=== PATIENT | female | born 1970 | race Hispanic/Latino ===

== ENCOUNTER → 2023-09-11 16:55 | Outpatient (REF) | payer OTHER, SELFPAY | LOC: HWWDC 16:55 | PROVIDERS: ATTENDING PHYSICIAN Nurse Practitioner Adult Health | DX: Z12.31 Encounter for screening mammogram for malignant neoplasm of breast (principal) | CPT/HCPCS: 77063; 77067 ==

== ENCOUNTER → 2023-10-04 08:54 | Outpatient (REF) | payer OTHER, SELFPAY | LOC: WDC 08:54 | PROVIDERS: ATTENDING PHYSICIAN Nurse Practitioner Adult Health | DX: R92.8 Other abnormal and inconclusive findings on diagnostic imaging of breast (principal) | CPT/HCPCS: 76642 ==

== ENCOUNTER 2023-10-18 00:40 | Emergency (ER) | payer SELFPAY ==
[2023-10-18 00:45] VITALS: BP 157/97
[2023-10-18 01:14] LABS: % Basophils 1.1 % (0-2); % Eosinophils 3.7 % (0-6); % Immature Granulocytes 0.1 % (0-0.5); % Lymphocytes 38.7 % (20.5-51.1); % Monocytes 8.8 % (1.7-9.3); % Neutrophils 47.6 % (42.2-75.2); Absolute Basophils 0.1 10^3/uL (0-0.2); Absolute Eosinophils 0.3 10^3/uL (0-0.7); Absolute Lymphocytes 2.9 10^3/uL (1.2-3.4); Absolute Monocytes 0.7 10^3/uL (0.1-0.6); Absolute Neutrophils 3.5 10^3/uL (1.4-6.5); Hemoglobin 13.5 g/dL (12.0-16.0); Mean Corp Hgb Conc. 34.6 g/dL (33.0-37.0); Mean Corpuscular Hgb 30.4 pg (27.0-31.0); Mean Corpuscular Volume 87.8 fL (81.0-99.0); Mean Platelet Volume 9.9 fL (7.4-10.4); Nucleated Red Blood Cells % 0 %; Platelet Count 254 10^3/uL (130-400); Red Blood Cell Count 4.44 10^6/uL (4.20-5.40); Red Cell Dist. Width 12.9 % (11.5-14.5); White Blood Cell Count 7.4 10^3/uL (4.8-10.8)
[2023-10-18 01:29] VITALS: BP 135/78
[2023-10-18 01:37] LABS: ALT (SGPT) 31 U/L (0-35); AST (SGOT) 32 U/L (14-36); Albumin 4.9 g/dl (3.5-5.0); Alkaline Phosphatase 64 U/L (38-126); Blood Urea Nitrogen 18 mg/dl (7-17); Calcium 9.4 mg/dl (8.4-10.2); Carbon Dioxide 23 mmol/L (22-30); Chloride 104 mmol/L (98-107); Glucose 97 mg/dl (70-99); Sodium 139 mmol/L (135-145); Total Bilirubin 0.5 mg/dl (0.2-1.3); eGFR > 60.00
[2023-10-18 01:45] LABS: Troponin I < 0.012 ng/ml
[2023-10-18 01:52] LABS: D-Dimer 0.47 ug/mlFEU (0.00-0.50)
--- NOTE | 2023-10-18 01:53 | ED.GENMED ---
History of Present Illness
<Devyn Harrison MD - Last Filed: 10/18/23 02:17>
General
Chief Complaint: Chest Pain
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
Exam Limitations: none
Time Seen by Provider: 10/18/23 01:14
Travel History
Have you had any contact with someone who has COVID-19?: No
Do you have any symptoms of coronavirus? Fever > 100 degrees, chills, cough, shortness of breath, sore throat, loss of taste or smell, muscle aches, or headache?: No
History of Present Illness
History of Present Illness:
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 Continuous for 3 hours. 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 Had 1 previous episode like this in the past however self resolved and was not worked up. No
pleuritic pain no radiation to the back arm or jaw. No nausea or diaphoresis. No exertional component. States she has some discomfort now but minimal.
Past History
<Devyn Harrison MD - Last Filed: 10/18/23 02:17>
Past History
ED Past Medical History: Hypercholesterolemia and Hypothyroidism
ED Past Surgical History: and Other (Breast abscess)
Social History
Tobacco: Non-smoker
Alcohol: None
Personal:
Living: with family
Review of Systems
<Devyn Harrison MD - Last Filed: 10/18/23 02:17>
Review of Systems
All Other Systems: Not applicable
Constitutional: Denies fever
Respiratory: Denies trouble breathing
Cardiac: Denies diaphoresis, palpitations or syncope
Phy Exam
<Devyn Harrison MD - Last Filed: 10/18/23 02:17>
Physical Exam
Physical Exam:
GENERAL: Alert and oriented in no apparent distress
EYE: Orbits normal.
NECK: Supple, no significant adenopathy.
ENT: Pharynx without erythema
CARDIAC: Regular rate and rhythm without any obvious murmurs.
LUNGS: Clear breath sounds,normal
ABDOMEN: Soft, without focal tenderness or distention
NEUROLOGICAL: Alert and oriented , grossly non-focal
SKIN: Warm and dry, no rash or lesion, no discoloration, skin intact.
MUSCULOSKELETAL: No edema,no deformity.Good color
PSYCH: Normal and appropriate interaction.
<Jack Bartholomew DO - Last Filed: 10/18/23 05:32>
Heart Score for Chest Pain Patients
STEMI patient?: Not applicable
Course
<Devyn Harrison MD - Last Filed: 10/18/23 02:17>
Orders/Labs/Results
Orders:
Orders
10/18/23 00:45
Electrocardiogram (*1) Urgent
Reason for Study: Chest Pain
EKG- Treatment ONCE
10/18/23 01:03
CMP [Comprehensive Metabolic Panel] Urgent
Complete Blood Count/With Diff Urgent
Troponin I Urgent
10/18/23 01:22
IV Insert/Care/Rem.- Treatment PRN
CR Chest - 2 Views Urgent
Comment:
Reason For Exam: cp
Pulse Ox/cont/shift [RESP] Stat
Quantity: 1
10/18/23 01:26
D-Dimer Urgent
10/18/23 02:16
EKG- Treatment ONCE
10/18/23 03:46
Troponin I Urgent
10/18/23 04:00
Electrocardiogram (*1) Stat
Reason for Study: Other
Other Reason for Exam: chest pain
Abnormal Lab Results
10/18/23
01:03
Absolute Monos (auto) 0.7 H 10^3/uL
(0.1-0.6)
BUN 18 H mg/dl
(7-17)
Creatinine 0.4 L mg/dL
(0.6-1.0)
10/18/23 01:03
10/18/23 01:03
Vital Signs
Initial and Last Documented VS:
Initial Vital Signs
Temp Pulse Resp BP Pulse Ox
97.6 F 56 20 157/97 97
10/18/23 00:45 10/18/23 00:45 10/18/23 00:45 10/18/23 00:45 10/18/23 00:45
Last Documented Vital Signs
Temp Pulse Resp BP Pulse Ox
97.6 F 62 14 102/58 96
10/18/23 00:45 10/18/23 05:00 10/18/23 05:00 10/18/23 05:00 10/18/23 05:00
<Jack Bartholomew, DO - Last Filed: 10/18/23 05:32>
Orders/Labs/Results
Orders:
Orders
10/18/23 00:45
Electrocardiogram (*1) Urgent
Reason for Study: Chest Pain
EKG- Treatment ONCE
10/18/23 01:03
CMP [Comprehensive Metabolic Panel] Urgent
Complete Blood Count/With Diff Urgent
Troponin I Urgent
10/18/23 01:22
IV Insert/Care/Rem.- Treatment PRN
CR Chest - 2 Views Urgent
Comment:
Reason For Exam: cp
Pulse Ox/cont/shift [RESP] Stat
Quantity: 1
10/18/23 01:26
D-Dimer Urgent
10/18/23 02:16
EKG- Treatment ONCE
10/18/23 03:46
Troponin I Urgent
10/18/23 04:00
Electrocardiogram (*1) Stat
Reason for Study: Other
Other Reason for Exam: chest pain
Abnormal Lab Results
10/18/23
01:03
Absolute Monos (auto) 0.7 H 10^3/uL
(0.1-0.6)
BUN 18 H mg/dl
(7-17)
Creatinine 0.4 L mg/dL
(0.6-1.0)
10/18/23 01:03
10/18/23 01:03
Vital Signs
Initial and Last Documented VS:
Initial Vital Signs
Temp Pulse Resp BP Pulse Ox
97.6 F 56 20 157/97 97
10/18/23 00:45 10/18/23 00:45 10/18/23 00:45 10/18/23 00:45 10/18/23 00:45
Last Documented Vital Signs
Temp Pulse Resp BP Pulse Ox
97.6 F 62 14 102/58 96
10/18/23 00:45 10/18/23 05:00 10/18/23 05:00 10/18/23 05:00 10/18/23 05:00
<Devyn Harrison MD - Last Filed: 10/18/23 02:17>
MDM/Problems Addressed
Differential Diagnosis Includes:
Nonexertional vague symptoms for 3 hours with a normal EKG and normal troponin. Repeat EKG and troponin will be done at the 3-hour jorge. Patient clinically is nontoxic and in no distress. If all stable patient can be followed up by cardiology
<Devyn Harrison MD - Last Filed: 10/18/23 02:17>
*Pulse Oximetry
Patient hypoxic: no
*EKG
Interpreted by ED Provider?: Yes
Interpretation: normal
Comparison EKG: no changes
Heart Rate: 60
Rate: normal
Rhythm: sinus
Ong: normal axis
Interval: normal interval
QRS Pattern: normal QRS
Ischemia: no ischemia
Data Reviewed
Review of Other/Old Records Reveals: Labs and Testing
<Jack Bartholomew DO - Last Filed: 10/18/23 05:32>
*Critical Care Note
Total Time (30-74mins, 75-104mins- exclusive of procedures): Not Applicable
ED Attending Note
<Devyn Harrison MD - Last Filed: 10/18/23 02:17>
-
Portions of this chart may have been created with voice recognition software.� Occasional wrong word or��sound alike� substitutions may have occurred due to the inherent limitations of voice recognition software.
Discharge Plan
Departure
Patient Disposition: Home (Routine Discharge)
Patient with high blood pressure during this ER visit?: No
Discharge Problem:
Chest pain
Instructions: Chest Pain DCA Follow Up, BLOOD PRESSURE
Interventions
Interventions:
*Risk Screen - Suicide Last Done: 10/18/23 00:45
*General Assessment Last Done: 10/18/23 01:27
*Neglect/Abuse Screening Last Done: 10/18/23 00:45
ED- Fall Risk Assessment Last Done: 10/18/23 05:10
*ED COVID-19 Vaccine History Last Done: 10/18/23 05:10
*Nursing Disposition Last Done: 10/18/23 05:10
ED- Cardiac Assessment Last Done: 10/18/23 01:28
Discharge Date and Time
Discharge Date/Time: 10/18/23 05:17
[2023-10-18 03:05] VITALS: BP 131/81
[2023-10-18 04:00] VITALS: BP 126/84
[2023-10-18 04:45] LABS: Troponin I < 0.012 ng/ml
[2023-10-18 05:00] VITALS: BP 102/58
== END 2023-10-18 05:17 | disposition home or self-care (01) ==
LOC: EMR 00:40
PROVIDERS: Student in an Organized Health Care Education/Training Program; EMERGENCY PHYSICIAN Emergency Medicine
DX: R07.9 Chest pain, unspecified (principal)
CPT/HCPCS: 99285; 71046; 80053; 84484; 85025; 85379; 93005

== ENCOUNTER 2023-11-06 09:51 | Outpatient (RCR) | payer OTHER, SELFPAY | END 2023-11-06 23:59 | disposition home or self-care (01) | LOC: RPT 09:51 | PROVIDERS: ATTENDING PHYSICIAN Nurse Practitioner Acute Care | DX: M76.62 Achilles tendinitis, left leg (principal); M72.2 Plantar fascial fibromatosis; Z73.6 Limitation of activities due to disability | CPT/HCPCS: 97010; 97110; 97162 ==

== ENCOUNTER → 2023-11-20 11:20 | Outpatient (REF) | payer OTHER, SELFPAY ==
[2023-11-20 12:33] LABS: ALT (SGPT) 21 U/L (0-35); AST (SGOT) 22 U/L (14-36); Albumin 4.7 g/dl (3.5-5.0); Alkaline Phosphatase 81 U/L (38-126); Blood Urea Nitrogen 24 mg/dl (7-17); Calcium 9.6 mg/dl (8.4-10.2); Carbon Dioxide 25 mmol/L (22-30); Chloride 104 mmol/L (98-107); Glucose 91 mg/dl (70-99); HDL Cholesterol 46 mg/dl; LDL Cholesterol, Calculated 113 mg/dl; Potassium 4.7 mmol/L (3.5-5.1); Sodium 137 mmol/L (135-145); Total Bilirubin 0.6 mg/dl (0.2-1.3); Total Cholesterol 191 mg/dl (50-199); Total Protein 7.9 g/dl (6.3-8.2); Triglyceride 161 mg/dl (10-149); Very Low Density Lipoprotein 32 mg/dl (0-30); eGFR > 60.00
== END ==
LOC: CLINIC 11:20
PROVIDERS: ATTENDING PHYSICIAN Nurse Practitioner Adult Health
DX: R73.03 Prediabetes (principal)
CPT/HCPCS: 36415; 80053; 80061; 83036

== ENCOUNTER 2023-12-04 09:55 | Outpatient (RCR) | payer OTHER, SELFPAY | END 2023-12-04 13:47 | disposition home or self-care (01) | LOC: RPT 09:55 | PROVIDERS: ATTENDING PHYSICIAN Nurse Practitioner Acute Care | DX: M76.62 Achilles tendinitis, left leg (principal); M72.2 Plantar fascial fibromatosis; Z73.6 Limitation of activities due to disability | CPT/HCPCS: 97010; 97110 ==

== ENCOUNTER → 2024-02-27 15:47 | Outpatient (REF) | payer OTHER, SELFPAY ==
[2024-02-27 17:15] LABS: Blood Urea Nitrogen 21 mg/dl (7-17); Calcium 9.4 mg/dl (8.4-10.2); Carbon Dioxide 22 mmol/L (22-30); Chloride 107 mmol/L (98-107); Glucose 86 mg/dl (70-99); Potassium 4.2 mmol/L (3.5-5.1); Sodium 140 mmol/L (135-145); eGFR > 60.00
[2024-02-28 10:24] LABS: Glycohemoglobin (HgbA1c) 5.9 % (4.0-5.6)
== END ==
LOC: CLINIC 15:47
PROVIDERS: ATTENDING PHYSICIAN Nurse Practitioner Adult Health
DX: R73.03 Prediabetes (principal)
CPT/HCPCS: 36415; 80048; 83036

== ENCOUNTER → 2024-07-30 11:44 | Outpatient (REF) | payer OTHER, SELFPAY ==
[2024-07-30 13:02] LABS: Hematocrit 36.3 % (37.0-47.0); Hemoglobin 12.4 g/dL (12.0-16.0); Mean Corp Hgb Conc. 34.2 g/dL (33.0-37.0); Mean Corpuscular Volume 87.7 fL (81.0-99.0); Mean Platelet Volume 9.7 fL (7.4-10.4); Platelet Count 234 10^3/uL (130-400); Red Blood Cell Count 4.14 10^6/uL (4.20-5.40); Red Cell Dist. Width 13.4 % (11.5-14.5); White Blood Cell Count 6.1 10^3/uL (4.8-10.8)
[2024-07-30 13:46] LABS: ALT (SGPT) 24 U/L (0-35); AST (SGOT) 26 U/L (14-36); Albumin 4.5 g/dl (3.5-5.0); Alkaline Phosphatase 62 U/L (38-126); Blood Urea Nitrogen 18 mg/dl (7-17); Calcium 9.1 mg/dl (8.4-10.2); Carbon Dioxide 26 mmol/L (22-30); Chloride 104 mmol/L (98-107); Glucose 87 mg/dl (70-99); Potassium 4.4 mmol/L (3.5-5.1); Sodium 138 mmol/L (135-145); Total Bilirubin 0.3 mg/dl (0.2-1.3); Total Protein 7.5 g/dl (6.3-8.2); eGFR > 60.00
[2024-07-30 13:59] LABS: Free T4 1.08 ng/dl (0.78-2.19); Vitamin D, 25-OH*** 19.5 ng/mL (30-80)
[2024-07-30 14:12] LABS: TSH 1.44 uIU/ml (0.47-4.68)
[2024-07-30 14:21] LABS: Glycohemoglobin (HgbA1c) 5.9 % (4.0-5.6)
== END ==
LOC: CLINIC 11:44
PROVIDERS: ATTENDING PHYSICIAN Nurse Practitioner Adult Health
DX: R73.03 Prediabetes (principal); E55.9 Vitamin D deficiency, unspecified; E03.9 Hypothyroidism, unspecified
CPT/HCPCS: 36415; 80053; 82306; 83036; 84439; 84443; 85027

== ENCOUNTER → 2024-08-28 16:35 | Outpatient (REF) | payer OTHER, SELFPAY | LOC: RAD 16:35 | PROVIDERS: ATTENDING PHYSICIAN Podiatrist Foot & Ankle Surgery | DX: M72.2 Plantar fascial fibromatosis (principal) | CPT/HCPCS: 73600 ==

== ENCOUNTER → 2025-02-17 09:53 | Outpatient (REF) | payer OTHER, SELFPAY ==
[2025-02-17 11:47] LABS: Vitamin D, 25-OH*** 26.8 ng/mL (30-80)
== END ==
LOC: CLINIC 09:53
PROVIDERS: ATTENDING PHYSICIAN Nurse Practitioner Adult Health
DX: E55.9 Vitamin D deficiency, unspecified (principal)
CPT/HCPCS: 36415; 82306

== ENCOUNTER → 2025-05-28 19:04 | Outpatient (REF) | payer OTHER, SELFPAY | LOC: WDC 19:04 | PROVIDERS: ATTENDING PHYSICIAN Nurse Practitioner Adult Health | DX: Z12.31 Encounter for screening mammogram for malignant neoplasm of breast (principal) | CPT/HCPCS: 77063; 77067 ==